=== PATIENT | male | born 1965 | race Caucasian/White ===

== ENCOUNTER 2020-09-06 08:49 | Emergency (ER) | payer OTHER ==
[~2020-09-06] VITALS: Ht 177.8 cm; Wt 38.2 kg
[~2020-09-06 08:49] MED LIST: NO HOME MEDS
[2020-09-06 10:55] VITALS: BP 118/96
--- NOTE | 2020-09-06 10:57 | NUR ---
Patient seen and assessed by provider.
== END 2020-09-06 10:57 | disposition home or self-care (01) ==
LOC: ER 08:50
DX: B34.9 Viral infection, unspecified (principal); Z20.822 Contact with and (suspected) exposure to COVID-19; R06.02 Shortness of breath; R07.89 Other chest pain; R19.7 Diarrhea, unspecified
CPT/HCPCS: 71045; 87635; 93005; 99285; C9803

== ENCOUNTER 2020-09-08 13:58 | Emergency (ER) | payer MEDICAID, OTHER ==
[~2020-09-08] VITALS: Ht 177.8 cm; Wt 98.0 kg
[2020-09-08 14:55] LABS: BASOPHILS # (AUTO) 0.1 X10'3 (0-0.2); BASOPHILS % (AUTO) 0.5 % (0-1); EOSINOPHILS # (AUTO) 0.1 X10'3 (0-0.9); EOSINOPHILS % (AUTO) 0.4 % (0-6); HEMATOCRIT 42.9 % (42.0-52.0); HEMOGLOBIN 14.2 g/dl (14.0-17.9); LYMPHOCYTES # (AUTO) 1.9 X10'3 (1.1-4.8); LYMPHOCYTES % (AUTO) 13.1 % (21-51); MEAN CORPUSCULAR HGB CONC 33.2 g/dL (33.0-36.5); MEAN CORPUSCULAR VOLUME 90.1 FL (78-98); MEAN PLATELET VOLUME 9.3 FL (7.4-10.4); MONOCYTES # (AUTO) 1.6 X10'3 (0-0.9); MONOCYTES % (AUTO) 11.1 % (2-12); NEUTROPHILS # (AUTO) 10.7 X10'3 (1.8-7.7); NEUTROPHILS % (AUTO) 74.9 % (42-75); PLATELET COUNT 253 X10'3 (140-440); RED BLOOD COUNT 4.75 X10'6 (4.70-6.10); RED CELL DISTRIBUTION WIDTH 14.4 % (11.5-14.5); WHITE BLOOD COUNT 14.3 X10'3 (4.5-11.0)
[2020-09-08] MEDS ORDERED: CefTRIAXone 2gm/D5W 50ml BAG 50 ML IV ONE ×2 (14:55→15:15)
[2020-09-08 15:18] LABS: ALBUMIN 3.4 G/DL (3.4-5.0); ALBUMIN/GLOBULIN RATIO 0.8 (1.1-1.5); ALKALINE PHOSPHATASE 122 IU/L (46-116); ANION GAP 15 (8-16); ASPARTATE AMINO TRANSFERASE 687 U/L (10-37); BILIRUBIN,TOTAL 0.8 MG/DL (0.1-1.0); BLOOD UREA NITROGEN 53 MG/DL (7-18); BUN/CREATININE RATIO 16.3 (5.4-32.0); CALCIUM 8.3 MG/DL (8.5-10.1); CHLORIDE 98 MMOL/L (99-107); CREATININE 3.26 MG/DL (0.60-1.10); GLUCOSE 118 MG/DL (70-104); POTASSIUM 4.2 MMOL/L (3.5-5.1); SODIUM 133 MMOL/L (135-145); TOTAL CARBON DIOXIDE 20.5 MMOL/L (24-32); TOTAL PROTEIN 7.9 G/DL (6.4-8.2); eGFR 20 ML/MIN
[2020-09-08 15:19] LABS: ALANINE AMINOTRANSFERASE 1404 U/L (12-78)
[2020-09-08] MEDS ORDERED: normal saline 1000ML IV soln IVB ONE (15:40)
[2020-09-08 16:36] VITALS: BP 140/111
[2020-09-08] MEDS ORDERED: azithromycin/NS 500mg/250ml 250 ML IV ONE (17:15)
[2020-09-08 17:58] LABS: PARTIAL THROMBOPLASTIN TIME 26 SECONDS (22-32)
[2020-09-08] MEDS ORDERED: ondansetron/PF 4mg/2ml inj IV PRN (18:10)
[2020-09-08] MEDS ORDERED: mag hydrox/Alum hydrox/simeth 30ml oral suspension PO PRN (18:10)
[2020-09-08] MEDS ORDERED: morphine 2 MG/ML inj. syringe IV PRN ×2 (18:10)
[2020-09-08] MEDS ORDERED: acetaminophen 325mg tablet PO PRN (18:10)
[2020-09-08] MEDS ORDERED: magnesium 2GM in 50ml NS 50 ML IV PRN (18:10)
[2020-09-08] MEDS ORDERED: potassium Cl 40MEQ/1/2NS 520ml 520 ML IV PRN ×2 (18:10)
[2020-09-08] MEDS ORDERED: potassium Cl 20 mEq SR tablet PO PRN ×2 (18:10)
[2020-09-08] MEDS ORDERED: magnesium 4gm in 100ml NS 100 ML IV PRN (18:10)
[2020-09-08] MEDS ORDERED: magnesium hydroxide 30ml (MOM) UD suspension PO PRN (18:10)
[2020-09-08] MEDS ORDERED: NO HOME MEDS (18:27)
[2020-09-08] MEDS ORDERED: piperacillin/tazo 3.375gm/50ml 50 ML IV SCH (19:00)
[2020-09-08] MEDS ORDERED: K and/or MAG REPLACEMENT MC SCH (20:00)
[2020-09-08] MEDS ORDERED: IBUP-2697 (22:15)
[2020-09-08] MEDS ORDERED: MULT-1085 PO (22:15)
[2020-09-10] MEDS ORDERED: dexmedetomidin/NS 400mcg/100ml 100 ML IV SCH (05:05)
[2020-09-14] MEDS ORDERED: FURO40TA4 PO (13:12)
[2020-09-14] MEDS ORDERED: AMOX-580 PO (13:12)
[2020-09-14] MEDS ORDERED: POTA20TA19 PO (13:12)
[2020-09-14] MEDS ORDERED: ASPI-1264 PO (13:12)
== END 2020-09-08 21:36 | disposition left against medical advice (07) ==
LOC: ER 13:59 → UNDOADMIN 18:06 → ED HOLD 18:06
DX: I31.3 Pericardial effusion (noninflammatory) (principal); Z20.822 Contact with and (suspected) exposure to COVID-19; J90 Pleural effusion, not elsewhere classified; N17.9 Acute kidney failure, unspecified; J18.9 Pneumonia, unspecified organism; Z79.899 Other long term (current) drug therapy
CPT/HCPCS: 36415; 71045; 71250; 74176; 76700; 80053; 83605; 83880; 84145; 84484; 85025; 85610; 85730; 87635; 93005; 93308; 96365; 96366; 96367; 99291; C9803; J0456; J0696; J7030; 96368; 99285; G0378

== ENCOUNTER 2020-09-20 14:58 | Outpatient (CLI) | payer MEDICAID ==
[~2020-09-20 14:58] MED LIST changes: +AMOX-580 PO; +ASPI-1264 PO; +FURO40TA4 PO; +MULT-1085 PO; -NO HOME MEDS; +POTA20TA19 PO
== END 2020-09-20 23:59 | disposition home or self-care (01) ==
LOC: RAD 14:58
PROVIDERS: ATTEND Thoracic Surgery (Cardiothoracic Vascular Surgery)
DX: Z98.890 Other specified postprocedural states (principal)
CPT/HCPCS: 71046